=== PATIENT | female | born 2000 | race Caucasian/White ===

== ENCOUNTER 2023-11-28 09:52 | Emergency (ER) | payer SELFPAY ==
[2023-11-28 10:23] VITALS: BP 115/76; PULSE 91; RESP 18; TEMP 99; BMI 28.3
[2023-11-28 11:38] LABS: THROAT:GRP A STREP NOT DETECTED (NOTDETECTED)
== END 2023-11-28 11:54 | disposition home or self-care (01) ==
LOC: JER 09:52
DX: J02.9 Acute pharyngitis, unspecified (principal); R51.9 Headache, unspecified; Z20.822 Contact with and (suspected) exposure to COVID-19
CPT/HCPCS: 0241U-QW; 71046-TC-FY; 87651; 99284-25